=== PATIENT | female | born 1995 | race Caucasian/White ===

== ENCOUNTER 2017-10-17 09:45 | Inpatient (IN) | payer OTHER ==
[2017-10-17] MEDS ORDERED: MISOPROSTOL 200 MCG TAB PR ×3 (10:30→20:30)
[2017-10-17] MEDS ORDERED: OXYTOCIN 30 UNITS/LR 500 ML IV ×5 (10:30→20:30)
[2017-10-17] MEDS ORDERED: METHYLERGONOVINE 0.2 MG INJ IM ×3 (10:30→20:30)
[2017-10-17] MEDS ORDERED: CARBOPROST 250 MCG INJ IM ×3 (10:30→20:30)
[2017-10-17 10:55] LABS: RUPTURE FETAL MEMBRANES POSITIVE (NEGATIVE)
[2017-10-17] MEDS: LACTATED RINGER'S 1,000 ML IV ×2 (11:27→13:12)
[2017-10-17 11:34] LABS: ADD MAN DIFF? NO
[2017-10-17] MEDS ORDERED: AMPICILLIN 2 GM/NS (PMX) 100 ML (11:38)
[2017-10-17 11:39] LABS: BASOPHILS % 0.2 % (0.0-2.0); EOSINOPHILS % 0.3 % (0.0-7.0); HEMATOCRIT 30.9 % (37.0-47.0); HEMOGLOBIN 10.3 g/dl (12.0-16.0); LYMPHOCYTES # 1.7 10^3/ul (0.8-2.9); LYMPHOCYTES % 17.6 % (15.0-51.0); MEAN CORPUSCULAR HEMOGLOBIN 30.3 pg (29.0-33.0); MEAN CORPUSCULAR HGB CONC 33.3 g/dl (32.0-37.0); MEAN CORPUSCULAR VOLUME 90.9 fl (82.0-101.0); MEAN PLATELET VOLUME 11.1 fl (7.4-10.4); MONOCYTE # 0.8 10^3/ul (0.3-0.9); MONOCYTES % 8.4 % (0.0-11.0); NEUTROPHIL # 6.9 10^3/ul (1.6-7.5); NEUTROPHILS % 73.2 % (39.0-77.0); PLATELET COUNT 226 10^3/UL (140-415); RED CELL DISTRIBUTION WIDTH 13.2 % (11.5-14.5)
[2017-10-17 11:39] LABS: WHITE BLOOD COUNT 9.4 10^3/ul (4.8-10.8)
[2017-10-17] MEDS: AMPICILLIN 2 GM/NS (PMX) 100 ML IVPB (11:57)
[2017-10-17 12:02] LABS: INR 0.92; PROTIME 12.4 Sec (11.9-14.9)
[2017-10-17 12:03] LABS: PARTIAL THROMBOPLASTIN TIME 28.5 Sec (25.0-35.0)
[2017-10-17 12:39] LABS: HEPATITIS B SURFACE ANTIGEN NEGATIVE (NEGATIVE)
[2017-10-17 15:08] LABS: RAPID PLASMA REAGIN NONREACTIVE (NR)
[2017-10-17] MEDS ORDERED: LACTATED RINGER'S 1,000 ML IV (15:23)
[2017-10-17] MEDS: CITRIC ACID/SODIUM CITRATE 15 ML CUP PO (15:47)
[2017-10-17] MEDS: FAMOTIDINE 20 MG INJ IV (15:47)
[2017-10-17] MEDS: METOCLOPRAMIDE 10 MG INJ IV (15:47)
[2017-10-17] MEDS ORDERED: BUPIVACAINE 0.75%/DEXT (SPINAL) 2 ML INJ (16:04)
[2017-10-17] MEDS ORDERED: morphine SULFATE/PF (10 MG/10 ML) INJ (16:04)
[2017-10-17] MEDS ORDERED: ONDANSETRON 4 MG INJ (16:18)
[2017-10-17] MEDS ORDERED: PHENYLephrine (100 MCG/ML) 10ML SYG (16:54)
[2017-10-17] MEDS ORDERED: HYDROmorphONE 1 MG/5 ML IV SYRINGE IV (17:00)
[2017-10-17] MEDS ORDERED: ZOLPIDEM 5 MG TAB PO (17:00)
[2017-10-17] MEDS ORDERED: HYDROmorphONE 0.5 MG/0.5 ML SYG IV (17:00)
[2017-10-17] MEDS ORDERED: FENTAnyl 50 MCG/ML VIAL IV (17:00)
[2017-10-17] MEDS ORDERED: DIPHENHYDRAMINE 50 MG INJ IV ×2 (17:00)
[2017-10-17] MEDS ORDERED: PROCHLORPERAZINE 10 MG INJ IV (17:00)
[2017-10-17] MEDS ORDERED: NALOXONE (0.4 MG/ML) INJ IV (17:00)
[2017-10-17] MEDS ORDERED: ONDANSETRON 4 MG INJ IV ×2 (17:00)
[2017-10-17] MEDS ORDERED: MEPERIDINE 25 MG INJ IV (17:00)
[2017-10-17] MEDS: AMPICILLIN 1 GM/NS (PMX) 50 ML IVPB (17:00)
[2017-10-17] MEDS: CEFAZOLIN 2 GM/50 ML (PMX) 50 ML IV (18:17)
[2017-10-17] MEDS: OXYTOCIN 30 UNITS/LR 500 ML IV ×3 (18:21→23:22)
[2017-10-17] MEDS: KETOROLAC 30 MG INJ IV (19:29)
[2017-10-17] MEDS ORDERED: LANOLIN 7 GM TUBE TOP ×2 (20:30)
[2017-10-17] MEDS ORDERED: CEFAZOLIN 1 GM/50 ML (PMX) 50 ML IVPB (20:30)
[2017-10-17] MEDS ORDERED: OXYCODONE/ACETAMINOPHEN (5/325) TAB PO ×3 (20:30)
[2017-10-17] MEDS ORDERED: HYDROCODONE/APAP (5/325) TAB PO ×2 (20:30)
[2017-10-17] MEDS: SENNA/DOCUSATE NA (8.6MG/50MG) TAB PO (21:00)
[2017-10-17] MEDS ORDERED: SENNA/DOCUSATE NA (8.6MG/50MG) TAB PO (21:00)
[2017-10-17] MEDS: HYDROmorphONE 0.5 MG/0.5 ML SYG IV (23:22)
[2017-10-18] MEDS: CEFAZOLIN 1 GM/50 ML (PMX) 50 ML IVPB (03:03)
[2017-10-18] MEDS: LACTATED RINGER'S 1,000 ML IV ×2 (03:12→11:54)
[2017-10-18] MEDS ORDERED: LACTATED RINGER'S 1,000 ML IV (03:30)
[2017-10-18] MEDS: KETOROLAC 30 MG INJ IV ×2 (05:26→11:54)
[2017-10-18] MEDS ORDERED: DIPHTH/TET/ACEL PERTUSS (ADULT) 0.5 ML VIAL IM* (09:00)
[2017-10-18 09:11] LABS: ADD MAN DIFF? NO
[2017-10-18 09:20] LABS: BASOPHILS % 0.3 % (0.0-2.0); EOSINOPHILS % 0.1 % (0.0-7.0); HEMATOCRIT 29.9 % (37.0-47.0); HEMOGLOBIN 9.5 g/dl (12.0-16.0); LYMPHOCYTES # 1.5 10^3/ul (0.8-2.9); LYMPHOCYTES % 16.4 % (15.0-51.0); MEAN CORPUSCULAR HGB CONC 31.8 g/dl (32.0-37.0); MEAN CORPUSCULAR VOLUME 91.2 fl (82.0-101.0); MONOCYTE # 0.9 10^3/ul (0.3-0.9); MONOCYTES % 10.3 % (0.0-11.0); NEUTROPHIL # 6.5 10^3/ul (1.6-7.5); NEUTROPHILS % 72.5 % (39.0-77.0); PLATELET COUNT 212 10^3/UL (140-415); RED BLOOD COUNT 3.28 10^6/ul (4.20-5.40); RED CELL DISTRIBUTION WIDTH 13.2 % (11.5-14.5)
[2017-10-18] MEDS: SENNA/DOCUSATE NA (8.6MG/50MG) TAB PO ×2 (09:54→21:31)
[2017-10-18] MEDS: HYDROCODONE/APAP (5/325) TAB PO ×2 (16:40→21:32)
[2017-10-18] MEDS: IBUPROFEN 600 MG TAB PO (17:56)
[2017-10-18] MEDS ORDERED: IBUPROFEN 600 MG TAB PO (18:00)
[2017-10-19] MEDS: IBUPROFEN 600 MG TAB PO ×4 (00:03→17:56)
[2017-10-19] MEDS: OXYCODONE/ACETAMINOPHEN (5/325) TAB PO ×2 (08:24→21:00)
[2017-10-19] MEDS: SENNA/DOCUSATE NA (8.6MG/50MG) TAB PO ×2 (08:24→20:56)
[2017-10-19] MEDS: NA PHOSPHATE/BIPHOS 133 ML ENEMA PR (11:40)
[2017-10-20] MEDS: IBUPROFEN 600 MG TAB PO ×3 (00:21→11:59)
[2017-10-20] MEDS: SENNA/DOCUSATE NA (8.6MG/50MG) TAB PO (08:18)
[2017-10-20] MEDS: OXYCODONE/ACETAMINOPHEN (5/325) TAB PO ×2 (08:19→15:23)
[2017-10-20] MEDS ORDERED: DIPHTH/TET/ACEL PERTUSS (ADULT) 0.5 ML VIAL IM* (09:00)
== END 2017-10-20 15:45 | disposition home or self-care (01) | DRG 766 ==
LOC: OBT 09:45 → L-D 09:45 → OBT 10:30 → L-D 10:30 → PP1 20:07
PROVIDERS: Obstetrics & Gynecology
PROC: 10D00Z1 Extraction of Products of Conception, Low, Open Approach (ICD-10-PCS; principal; 2017-10-17 15:45)
DX: O42.013 Preterm premature rupture of membranes, onset of labor within 24 hours of rupture, third trimester (principal); O34.219 Maternal care for unspecified type scar from previous cesarean delivery; Z3A.36 36 weeks gestation of pregnancy; Z37.0 Single live birth
CPT/HCPCS: 84112; 85025; 85610; 85730; 86592; 86850; 86900; 86901; 87340; 99464